=== PATIENT | male | born 1935 | race Caucasian/White ===

== ENCOUNTER 2018-07-03 14:53 | Inpatient (IN) | payer MEDICARE, OTHER ==
[~2018-07-03] VITALS: Ht 170.2 cm; Wt 86.4 kg
[~2018-07-03 14:53] MED LIST: ATOR20TA PO; COU4T PO; CYAN-19 PO; FENO48TA4 PO; FERR-119 PO; LANS30CA56 PO; LISI-600 PO; METO50TA7 PO; MULT-342 PO; OMEG1CAP PO; PYRI50TA13 PO; TRIA15CR61 TP
[2018-07-03] MEDS ORDERED: methylPREDNISolone sod succ 125mg/2ml vial IV ONE (15:20)
[2018-07-03] MEDS ORDERED: ipratropium/albuterol 3ml nebule NEB ONE (15:20)
[2018-07-03] MEDS ORDERED: normal saline 1000ML IV soln IV ONE (15:20)
[2018-07-03 15:47] LABS: BASOPHILS % (AUTO) 0.4 % (0-1); EOSINOPHILS % (AUTO) 0.2 % (0-6); HEMATOCRIT 39.5 % (42.0-52.0); HEMOGLOBIN 13.5 g/dl (14.0-17.9); LYMPHOCYTES # (AUTO) 1.1 X10'3 (1.1-4.8); LYMPHOCYTES % (AUTO) 9.4 % (21-51); MEAN CORPUSCULAR HGB CONC 34.2 g/dL (33.0-36.5); MEAN CORPUSCULAR VOLUME 87.8 FL (78-98); MEAN PLATELET VOLUME 9.2 FL (7.4-10.4); MONOCYTES # (AUTO) 1.4 X10'3 (0-0.9); MONOCYTES % (AUTO) 11.9 % (2-12); NEUTROPHILS # (AUTO) 9.5 X10'3 (1.8-7.7); NEUTROPHILS % (AUTO) 78.1 % (42-75); PLATELET COUNT 168 X10'3 (140-440); RED CELL DISTRIBUTION WIDTH 13.3 % (11.5-14.5); WHITE BLOOD COUNT 12.1 X10'3 (4.5-11.0)
[2018-07-03 15:54] LABS: ALANINE AMINOTRANSFERASE 29 U/L (12-78); ALBUMIN 3.4 G/DL (3.4-5.0); ALBUMIN/GLOBULIN RATIO 0.9 (1.1-1.5); ALKALINE PHOSPHATASE 69 IU/L (46-116); ANION GAP 10 (8-16); ASPARTATE AMINO TRANSFERASE 21 U/L (10-37); BILIRUBIN,TOTAL 1.2 MG/DL (0.1-1.0); BLOOD UREA NITROGEN 16 MG/DL (7-18); BUN/CREATININE RATIO 11.3 (5.4-32.0); CALCIUM 9.2 MG/DL (8.5-10.1); CHLORIDE 103 MMOL/L (99-107); CREATININE 1.42 MG/DL (0.60-1.10); GLUCOSE 195 MG/DL (70-104); POTASSIUM 3.8 MMOL/L (3.5-5.1); SODIUM 137 MMOL/L (135-145); TOTAL CARBON DIOXIDE 23.6 MMOL/L (24-32); TOTAL PROTEIN 7.1 G/DL (6.4-8.2); eGFR 48 ML/MIN
[2018-07-03 15:57] LABS: INR 1.4 INR; PARTIAL THROMBOPLASTIN TIME 33 SECONDS (22-32)
[2018-07-03] MEDS ORDERED: CefTRIAXone 2gm/D5W 50ml 50 ML IV ONE (16:00)
[2018-07-03] MEDS ORDERED: azithromycin/NS 500mg/250ml 250 ML IV ONE (16:00)
[2018-07-03] MEDS ORDERED: potassium Cl 40MEQ/NS 500ml 500 ML IV PRN ×2 (16:15)
[2018-07-03] MEDS ORDERED: HYDROcodone/acetaminophen 10/325mg tab PO PRN (16:15)
[2018-07-03] MEDS ORDERED: mag hydrox/Alum hydrox/simeth 30ml oral suspension PO PRN (16:15)
[2018-07-03] MEDS ORDERED: HYDROcodone/acetaminophen 5mg/325mg tablet PO PRN (16:15)
[2018-07-03] MEDS ORDERED: magnesium 4gm in 100ml NS 100 ML IV PRN (16:15)
[2018-07-03] MEDS ORDERED: magnesium hydroxide 30ml (MOM) UD suspension PO PRN (16:15)
[2018-07-03] MEDS ORDERED: acetaminophen 325mg tablet PO PRN ×2 (16:15)
[2018-07-03] MEDS ORDERED: ondansetron/PF 4mg/2ml inj IV PRN (16:15)
[2018-07-03] MEDS ORDERED: magnesium 2GM in 50ml NS 50 ML IV PRN (16:15)
[2018-07-03] MEDS ORDERED: potassium Cl 20 mEq SR tablet PO PRN ×2 (16:15)
[2018-07-03] MEDS ORDERED: magnesium Cl slow-release 64mg tablet PO PRN (16:15)
[2018-07-03] MEDS ORDERED: WARF1TAB PO (16:29)
[2018-07-03 20:00] VITALS: BP 134/67
[2018-07-03 20:24] LABS: HEMOGLOBIN A1C 5.9 % (4.5-6.2)
[2018-07-03] MEDS ORDERED: warfarin 10mg tablet PO ONE (21:00)
[2018-07-03] MEDS ORDERED: warfarin 7.5mg tablet PO ONE (21:00)
[2018-07-03] MEDS ORDERED: temazepam 15mg capsule PO PRN (21:00)
[2018-07-03] MEDS: normal saline 1000ml 1,000 ML IV SCH (21:08)
--- NOTE | 2018-07-03 21:36 | NUR ---
Patient in room [facility]. I have received report from ESME De Paz and had the opportunity to ask questions and assume patient care. Addendum: 07/03/18 at 2137 by Vale Busch RN Amended: Links added.
[2018-07-03 23:37] VITALS: BP 109/51
[2018-07-04] MEDS: normal saline 1000ml 1,000 ML IV SCH ×3 (02:13→15:57)
[2018-07-04 04:28] LABS: INR 1.5 INR
[2018-07-04 04:30] LABS: ALANINE AMINOTRANSFERASE 27 U/L (12-78); ALBUMIN 2.9 G/DL (3.4-5.0); ALBUMIN/GLOBULIN RATIO 0.7 (1.1-1.5); ALKALINE PHOSPHATASE 64 IU/L (46-116); ANION GAP 8 (8-16); ASPARTATE AMINO TRANSFERASE 24 U/L (10-37); BILIRUBIN,TOTAL 0.5 MG/DL (0.1-1.0); BLOOD UREA NITROGEN 16 MG/DL (7-18); BUN/CREATININE RATIO 12.5 (5.4-32.0); CALCIUM 8.6 MG/DL (8.5-10.1); CHLORIDE 107 MMOL/L (99-107); CREATININE 1.28 MG/DL (0.60-1.10); GLUCOSE 238 MG/DL (70-104); MAGNESIUM 2.1 MG/DL (1.5-2.4); POTASSIUM 3.9 MMOL/L (3.5-5.1); SODIUM 138 MMOL/L (135-145); TOTAL PROTEIN 6.8 G/DL (6.4-8.2); eGFR 54 ML/MIN
[2018-07-04 05:53] LABS: BASOPHILS % (AUTO) 0.1 % (0-1); EOSINOPHILS % (AUTO) 0 % (0-6); HEMOGLOBIN 13.7 g/dl (14.0-17.9); LYMPHOCYTES # (AUTO) 0.6 X10'3 (1.1-4.8); LYMPHOCYTES % (AUTO) 6.2 % (21-51); MEAN CORPUSCULAR HEMOGLOBIN 30.1 PG (27.0-31.0); MEAN CORPUSCULAR HGB CONC 34.2 g/dL (33.0-36.5); MEAN PLATELET VOLUME 9.2 FL (7.4-10.4); MONOCYTES # (AUTO) 0.3 X10'3 (0-0.9); MONOCYTES % (AUTO) 2.7 % (2-12); NEUTROPHILS # (AUTO) 8.4 X10'3 (1.8-7.7); PLATELET COUNT 152 X10'3 (140-440); RED BLOOD COUNT 4.54 X10'6 (4.70-6.10); RED CELL DISTRIBUTION WIDTH 13.1 % (11.5-14.5); WHITE BLOOD COUNT 9.2 X10'3 (4.5-11.0)
--- NOTE | 2018-07-04 06:26 | NUR ---
Problems reprioritized. Patient report given, questions answered & plan of care reviewed with ESME Zhao. Addendum: 07/04/18 at 0626 by Vale Busch RN Amended: Links added.
--- NOTE | 2018-07-04 06:30 | NUR ---
Patient in room [facility]. I have received report from Eugenia durham and had the opportunity to ask questions and assume patient care.
[2018-07-04 07:30] VITALS: BP 140/72
[2018-07-04] MEDS: metoprolol succinate 25mg (24-HOUR) SR. Tablet PO SCH (07:39)
[2018-07-04] MEDS: omega-3 acid ethyl esters 1GM capsule PO SCH (07:39)
[2018-07-04] MEDS: atorvastatin 20mg tablet PO SCH (07:42)
[2018-07-04] MEDS: azithromycin/NS 500mg/250ml 250 ML IV SCH (07:43)
[2018-07-04] MEDS: K and/or MAG REPLACEMENT MC SCH (08:00)
[2018-07-04] MEDS ORDERED: non-formulary drug (Metoprolol Succinate* (Toprol Xl*) 50 MG) PO SCH (08:00)
[2018-07-04] MEDS: CefTRIAXone/D5W-Rocephin 1gm 50 ML IV SCH (09:22)
[2018-07-04 11:56] VITALS: BP 152/64
[2018-07-04] MEDS: fenofibrate 48mg tablet PO SCH (12:27)
--- NOTE | 2018-07-04 12:55 | NUR ---
Nutrition consult received. Patient is eating well today, 75-100%, bedside RN reports he is eating well also. A1c is 5.9. No apparent need for nutrition intervention at this time. Will continue to follow. Addendum: 07/04/18 at [address] Amended: Links added.
[2018-07-04] MEDS ORDERED: enoxaparin 100mg/ml syringe SUBCUT SCH (13:27)
[2018-07-04] MEDS ORDERED: enoxaparin 60mg/0.6ml syringe SUBCUT SCH (14:23)
[2018-07-04] MEDS ORDERED: enoxaparin 30mg/0.3ml syringe SUBCUT SCH (14:23)
--- NOTE | 2018-07-04 18:09 | NUR ---
Problems reprioritized. Patient report given, questions answered & plan of care reviewed with berenice VICTORIA.
--- NOTE | 2018-07-04 18:30 | NUR ---
Patient in room [facility]. I have received report from Cece VICTORIA and had the opportunity to ask questions and assume patient care. Finished dinner, will continue to monitor.
[2018-07-04 20:00] VITALS: BP 124/63
[2018-07-04] MEDS ORDERED: warfarin 7.5mg tablet PO ONE (21:00)
[2018-07-05] VITALS: BP 116/60
[2018-07-05] MEDS ORDERED: enoxaparin 60mg/0.6ml syringe SUBCUT SCH (02:00)
[2018-07-05] MEDS ORDERED: enoxaparin 30mg/0.3ml syringe SUBCUT SCH (02:00)
[2018-07-05] MEDS: normal saline 1000ml 1,000 ML IV SCH (02:23)
[2018-07-05 05:29] LABS: BASOPHILS % (AUTO) 0.1 % (0-1); EOSINOPHILS % (AUTO) 0.1 % (0-6); HEMATOCRIT 34.2 % (42.0-52.0); HEMOGLOBIN 11.8 g/dl (14.0-17.9); LYMPHOCYTES # (AUTO) 0.9 X10'3 (1.1-4.8); LYMPHOCYTES % (AUTO) 5.8 % (21-51); MEAN CORPUSCULAR HEMOGLOBIN 30.1 PG (27.0-31.0); MEAN CORPUSCULAR HGB CONC 34.6 g/dL (33.0-36.5); MEAN CORPUSCULAR VOLUME 87.1 FL (78-98); MEAN PLATELET VOLUME 9.9 FL (7.4-10.4); MONOCYTES # (AUTO) 1.1 X10'3 (0-0.9); MONOCYTES % (AUTO) 7.8 % (2-12); NEUTROPHILS # (AUTO) 12.7 X10'3 (1.8-7.7); NEUTROPHILS % (AUTO) 86.2 % (42-75); PLATELET COUNT 194 X10'3 (140-440); RED BLOOD COUNT 3.92 X10'6 (4.70-6.10); RED CELL DISTRIBUTION WIDTH 13.2 % (11.5-14.5); WHITE BLOOD COUNT 14.7 X10'3 (4.5-11.0)
[2018-07-05 05:45] LABS: INR 3.5 INR
[2018-07-05 05:48] LABS: ALANINE AMINOTRANSFERASE 39 U/L (12-78); ALBUMIN 2.5 G/DL (3.4-5.0); ALBUMIN/GLOBULIN RATIO 0.7 (1.1-1.5); ALKALINE PHOSPHATASE 55 IU/L (46-116); ANION GAP 7 (8-16); ASPARTATE AMINO TRANSFERASE 37 U/L (10-37); BILIRUBIN,TOTAL 0.2 MG/DL (0.1-1.0); BLOOD UREA NITROGEN 22 MG/DL (7-18); BUN/CREATININE RATIO 21.2 (5.4-32.0); CALCIUM 8.2 MG/DL (8.5-10.1); CHLORIDE 111 MMOL/L (99-107); CREATININE 1.04 MG/DL (0.60-1.10); GLUCOSE 170 MG/DL (70-104); POTASSIUM 4.1 MMOL/L (3.5-5.1); SODIUM 143 MMOL/L (135-145); TOTAL CARBON DIOXIDE 24.6 MMOL/L (24-32); TOTAL PROTEIN 5.9 G/DL (6.4-8.2); eGFR 68 ML/MIN
--- NOTE | 2018-07-05 06:36 | NUR ---
Patient in room [facility]. I have received report from Aye VICTORIA and had the opportunity to ask questions and assume patient care.
--- NOTE | 2018-07-05 06:54 | NUR ---
Problems reprioritized. Patient report given, questions answered & plan of care reviewed with Cece VICTORIA. Eyes closed respirations even, will continue to monitor.
[2018-07-05] MEDS: atorvastatin 20mg tablet PO SCH (07:32)
[2018-07-05] MEDS: fenofibrate 48mg tablet PO SCH (07:32)
[2018-07-05] MEDS: metoprolol succinate 25mg (24-HOUR) SR. Tablet PO SCH (07:32)
[2018-07-05] MEDS: omega-3 acid ethyl esters 1GM capsule PO SCH (07:32)
[2018-07-05] MEDS: CefTRIAXone/D5W-Rocephin 1gm 50 ML IV SCH (07:35)
[2018-07-05] MEDS: K and/or MAG REPLACEMENT MC SCH (08:00)
[2018-07-05] MEDS ORDERED: LEVO750T21 PO (09:25)
[2018-07-05] MEDS: azithromycin/NS 500mg/250ml 250 ML IV SCH (09:34)
[2018-07-05 10:46] VITALS: BP 128/63
[2018-07-05 11:37] VITALS: BP 131/67
--- NOTE | 2018-07-05 16:05 | NUR ---
patient seen by Dr Plaza is for discharge. patient unable to get a ride within the two hour window. able to come and get patient 1200. All DC instructions given to patient. patient DC home with by car in stable condition. meds delivered by [facility].
== END 2018-07-05 12:16 | disposition home or self-care (01) | DRG 871 ==
LOC: ER 14:53 → SUR 3N 19:27 → CMPBEDREQ 19:49
PROVIDERS: ADMIT Family Medicine; ATTEND Internal Medicine
DX: A41.9 Sepsis, unspecified organism (principal); J18.9 Pneumonia, unspecified organism; E11.22 Type 2 diabetes mellitus with diabetic chronic kidney disease; I12.9 Hypertensive chronic kidney disease with stage 1 through stage 4 chronic kidney disease, or unspecified chronic kidney disease; R79.1 Abnormal coagulation profile; E78.5 Hyperlipidemia, unspecified; N18.3 Chronic kidney disease, stage 3 (moderate); Z79.01 Long term (current) use of anticoagulants; Z86.010 Personal history of colon polyps; Z87.891 Personal history of nicotine dependence; Z95.2 Presence of prosthetic heart valve; Z79.899 Other long term (current) drug therapy
CPT/HCPCS: 36415; 71045; 80053; 83036; 83605; 83735; 84145; 84484; 85025; 85610; 85730; 87040; 87070; 93005; 94640; 96365; 96375; 99285; G0378; J0456; J0696; J1650; J2930; J7030

== ENCOUNTER 2019-09-16 06:38 | Emergency (ER) | payer MEDICARE, OTHER ==
[~2019-09-16] VITALS: Ht 172.7 cm; Wt 88.4 kg
[~2019-09-16 06:38] MED LIST changes: -CYAN-19 PO; +CYAN-51 PO; -FENO48TA4 PO; +FENO48TA9 PO; -FERR-119 PO; -LANS30CA56 PO; -LISI-600 PO; -PYRI50TA13 PO; -TRIA15CR61 TP; +WARF1TAB2 PO
[2019-09-16 07:33] LABS: BASOPHILS % (AUTO) 0.6 % (0-1); EOSINOPHILS # (AUTO) 0.1 X10'3 (0-0.9); EOSINOPHILS % (AUTO) 2.3 % (0-6); HEMATOCRIT 38.7 % (42.0-52.0); HEMOGLOBIN 13.2 g/dl (14.0-17.9); LYMPHOCYTES # (AUTO) 1.2 X10'3 (1.1-4.8); MEAN CORPUSCULAR VOLUME 88.2 FL (78-98); MEAN PLATELET VOLUME 9.1 FL (7.4-10.4); MONOCYTES # (AUTO) 0.5 X10'3 (0-0.9); NEUTROPHILS # (AUTO) 4.2 X10'3 (1.8-7.7); NEUTROPHILS % (AUTO) 69.1 % (42-75); PLATELET COUNT 161 X10'3 (140-440); RED BLOOD COUNT 4.38 X10'6 (4.70-6.10); RED CELL DISTRIBUTION WIDTH 13.3 % (11.5-14.5)
[2019-09-16] MEDS ORDERED: normal saline 1000ml 1,000 ML IV ONE ×2 (07:35→09:40)
[2019-09-16 07:37] LABS: ALANINE AMINOTRANSFERASE 26 U/L (12-78); ALBUMIN 3.6 G/DL (3.4-5.0); ALBUMIN/GLOBULIN RATIO 1.3 (1.1-1.5); ALKALINE PHOSPHATASE 56 IU/L (46-116); ANION GAP 8 (8-16); ASPARTATE AMINO TRANSFERASE 17 U/L (10-37); BILIRUBIN,TOTAL 0.6 MG/DL (0.1-1.0); BLOOD UREA NITROGEN 18 MG/DL (7-18); BUN/CREATININE RATIO 15.1 (5.4-32.0); CALCIUM 8.5 MG/DL (8.5-10.1); CHLORIDE 107 MMOL/L (99-107); CREATININE 1.19 MG/DL (0.60-1.10); GLUCOSE 177 MG/DL (70-104); POTASSIUM 3.4 MMOL/L (3.5-5.1); SODIUM 141 MMOL/L (135-145); TOTAL CARBON DIOXIDE 25.9 MMOL/L (24-32); TOTAL PROTEIN 6.4 G/DL (6.4-8.2); eGFR 58 ML/MIN
[2019-09-16 07:40] LABS: MAGNESIUM 1.8 MG/DL (1.5-2.4); TROPONIN I < 0.04 NG/ML (0.0-0.05)
[2019-09-16] MEDS ORDERED: potassium Cl 20 mEq SR tablet PO STA (07:48)
[2019-09-16] MEDS ORDERED: ondansetron 4mg rapidly disintigrating tab PO ONE (07:50)
[2019-09-16] MEDS ORDERED: COU7.5T PO (08:34)
[2019-09-16 08:50] LABS: CLARITY,URINE CLEAR (Clear); COLOR,URINE YELLOW (Yellow); GLUCOSE, URINE NEGATIVE (Neg); KETONES,URINE NEGATIVE (Neg); LEUKOCYTE ESTERASE ,URINE NEGATIVE (Neg); NITRITES, URINE NEGATIVE (Neg); OCCULT BLOOD,URINE NEGATIVE (Neg); PROTEIN,URINE NEGATIVE (Neg); UROBILINOGEN,URINE 0.2 E.U/dL (0.2-1.0)
[2019-09-16 08:57] LABS: UA COLLECTION TYPE URINAL
[2019-09-16 11:15] VITALS: BP 162/85
== END 2019-09-16 11:18 | disposition home or self-care (01) ==
LOC: ER 06:38
DX: E86.0 Dehydration (principal); R53.1 Weakness; R42 Dizziness and giddiness; R11.0 Nausea; I10 Essential (primary) hypertension; E11.9 Type 2 diabetes mellitus without complications; Z79.01 Long term (current) use of anticoagulants; Z79.899 Other long term (current) drug therapy
CPT/HCPCS: 36415; 71045; 80053; 81003; 83735; 84145; 84484; 85025; 93005; 96360; 96361; 99285; J7030

== ENCOUNTER → 2020-10-15 | Outpatient (CLI) | payer MEDICARE, OTHER ==
[~2020-10-15] MED LIST changes: +AMIO200T67 PO; -COU4T PO; +COU7.5T PO; -CYAN-51 PO; +FLO0.4C PO; -MULT-342 PO; -OMEG1CAP PO; +OMEG1CAP61 PO; -WARF1TAB2 PO
[2020-10-15 10:58] LABS: TOTAL HEMOGLOBIN 14.6 G/dl (14.0-18.0)
== END | disposition home or self-care (01) ==
LOC: RT 10:12
PROVIDERS: ATTEND Internal Medicine Cardiovascular Disease
DX: R94.2 Abnormal results of pulmonary function studies (principal); I70.0 Atherosclerosis of aorta; Z79.899 Other long term (current) drug therapy
CPT/HCPCS: 71046; 85018; 94010; 94727; 94729

== ENCOUNTER 2021-04-28 08:01 | Outpatient (CLI) | payer MEDICARE, OTHER ==
[~2021-04-28 08:01] MED LIST changes: +FENO48TA10 PO; -FENO48TA9 PO
[2021-04-28 12:24] LABS: TOTAL HEMOGLOBIN 13.1 G/dl (14.0-18.0)
== END 2021-04-28 23:59 | disposition home or self-care (01) ==
LOC: RT 08:01
PROVIDERS: ATTEND Internal Medicine Cardiovascular Disease
DX: R94.2 Abnormal results of pulmonary function studies (principal); Z79.899 Other long term (current) drug therapy
CPT/HCPCS: 71046; 85018; 94010; 94727; 94729

== ENCOUNTER 2024-05-03 11:04 | Emergency (ER) | payer MEDICARE, OTHER ==
[~2024-05-03] VITALS: Ht 170.2 cm; Wt 85.4 kg
[~2024-05-03 11:04] MED LIST changes: +AMI200T PO; -AMIO200T67 PO; +ASPI-1071 PO; -ATOR20TA PO; +CEFD300C3 PO; -FLO0.4C PO; +LACT1CAP26 PO; +PANT40TA54 PO; +ROSU10TA72 PO
[2024-05-03 11:59] LABS: BASOPHILS # (AUTO) 0.1 X10'3 (0-0.2); BASOPHILS % (AUTO) 1.1 % (0-1); EOSINOPHILS # (AUTO) 0.2 X10'3 (0-0.9); EOSINOPHILS % (AUTO) 2.2 % (0-6); HEMATOCRIT 39.5 % (42.0-52.0); HEMOGLOBIN 13.5 g/dl (14.0-17.9); LYMPHOCYTES # (AUTO) 1.8 X10'3 (1.1-4.8); LYMPHOCYTES % (AUTO) 22.3 % (21-51); MEAN CORPUSCULAR HEMOGLOBIN 30.7 PG (27.0-31.0); MEAN CORPUSCULAR HGB CONC 34.3 g/dL (33.0-36.5); MEAN CORPUSCULAR VOLUME 89.6 FL (78-98); MEAN PLATELET VOLUME 9.2 FL (7.4-10.4); MONOCYTES # (AUTO) 0.8 X10'3 (0-0.9); NEUTROPHILS # (AUTO) 5.2 X10'3 (1.8-7.7); NEUTROPHILS % (AUTO) 64.4 % (42-75); PLATELET COUNT 177 X10'3 (140-440); RED CELL DISTRIBUTION WIDTH 13.4 % (11.5-14.5); WHITE BLOOD COUNT 8.1 X10'3 (4.5-11.0)
[2024-05-03 12:10] LABS: ALANINE AMINOTRANSFERASE 24 U/L (12-78); ALBUMIN 3.7 G/DL (3.4-5.0); ALBUMIN/GLOBULIN RATIO 1.1 (1.1-1.5); ALKALINE PHOSPHATASE 49 IU/L (46-116); ANION GAP 5 (8-16); ASPARTATE AMINO TRANSFERASE 20 U/L (10-37); BILIRUBIN,TOTAL 0.4 MG/DL (0.1-1.0); BLOOD UREA NITROGEN 25 MG/DL (7-18); BUN/CREATININE RATIO 17.9 (10.0-20.0); CALCIUM 8.8 MG/DL (8.5-10.1); CHLORIDE 109 MMOL/L (99-107); GLUCOSE 132 MG/DL (70-104); LIPASE 58 U/L (16-77); POTASSIUM 4.1 MMOL/L (3.5-5.1); SODIUM 143 MMOL/L (135-145); TOTAL CARBON DIOXIDE 28.8 MMOL/L (24-32); TOTAL PROTEIN 7.2 G/DL (6.4-8.2); eCRCL 34 ML/MIN; eGFR 48 ML/MIN
[2024-05-03 13:14] VITALS: TEMP 97.7
[2024-05-03 14:27] VITALS: BP 169/67; PULSE 53; RESP 16; O2SAT 99
== END 2024-05-03 14:31 | disposition home or self-care (01) ==
LOC: ER 11:05
DX: K82.1 Hydrops of gallbladder (principal); E11.9 Type 2 diabetes mellitus without complications; E78.00 Pure hypercholesterolemia, unspecified; I10 Essential (primary) hypertension; Z79.82 Long term (current) use of aspirin
CPT/HCPCS: 36415; 80053; 83690; 85025; 99283